=== PATIENT | female | born 1950 | race Caucasian/White ===

== ENCOUNTER 2018-07-07 10:02 | Emergency (ER) | payer MEDICARE ==
[~2018-07-07] VITALS: Ht 162.6 cm; Wt 83.8 kg
[~2018-07-07 10:02] MED LIST: ZOLP-413 PO
[2018-07-07 10:03] VITALS: BP 144/79
--- NOTE | 2018-07-07 10:14 | NUR ---
RIGHT GREAT TOENAIL DISCOLORED AND SKIN SURROUNDING IT BLUE. PT STATES [facility] TO[facility] ADDITIONALLY HAS PAIN LEFT HEEL THAT SHE HAS HAD FOR SOME TIME
[2018-07-07] MEDS ORDERED: HYDROcodone/APAP 5/325 TABLET ONE (10:28)
[2018-07-07] MEDS ORDERED: HYDROcodone/APAP 5/325 TABLET PO PRN (10:30)
--- NOTE | 2018-07-07 10:41 | NUR ---
TO XRAY VIA TIA
[2018-07-07] MEDS ORDERED: DIPH,PERTUSS(ACELL),TET VAC/PF 0.5 ML IM-VACC ONE ×2 (11:25→11:30)
--- NOTE | 2018-07-07 11:36 | NUR ---
AFTER PA CAUTERIZED HOLE IN RIGHT GREAT TOE NAIL, GIVEN TDAP VACCINATION
== END 2018-07-07 11:46 | disposition home or self-care (01) ==
LOC: ED 11:34
DX: S90.111A Contusion of right great toe without damage to nail, initial encounter (principal); Z90.710 Acquired absence of both cervix and uterus; X58.XXXA Exposure to other specified factors, initial encounter; Y93.89 Activity, other specified; Y92.89 Other specified places as the place of occurrence of the external cause; Y99.8 Other external cause status
CPT/HCPCS: 11740; 90471; 90715; 99283

== ENCOUNTER 2018-10-15 16:44 | Emergency (ER) | payer MEDICARE ==
[~2018-10-15] VITALS: Ht 162.6 cm; Wt 83.6 kg
[2018-10-15 16:46] VITALS: BP 170/84
[2018-10-15] MEDS ORDERED: FLUORESCEIN OPHTHALMIC 1 MG STRIP ONE (17:02)
--- NOTE | 2018-10-15 18:11 | NUR ---
Patient/Caregiver given discharge instructions and they have confirmed that they understand the instructions. Patient ambulatory with steady gait.
== END 2018-10-15 18:13 | disposition home or self-care (01) ==
LOC: ED 18:07
DX: H53.122 Transient visual loss, left eye (principal)
CPT/HCPCS: 99284